=== PATIENT | male | born 1965 | race Caucasian/White ===

== ENCOUNTER → 2018-03-17 13:36 | Outpatient (CLI) | payer OTHER, SELFPAY ==
--- NOTE | 2018-03-17 | DI.CT.S_ITS ---
PROCEDURE: CT ABDOMEN PELVIS W CON INDICATIONS: LEFT LOWER QUADRANT PAIN TECHNIQUE: After the administration of oral and intravenous contrast, 5 mm thick sections acquired from the diaphragms to the symphysis. 5 mm thick coronal and sagittal reformats were performed. For radiation dose reduction, the following was used: automated exposure control, adjustment of mA and/or kV according to patient size. COMPARISON: [facility], CT, ABDOMEN/PELVIS WITH CONTRAST, 08/19/2017, 15:14. FINDINGS: Image quality: Excellent. ABDOMEN: Lung bases: Lung bases are clear. Heart size is normal. Solid organs: Simple right lobe liver cysts stable since the previous study. Ill-defined increased enhancement along the posterior margin of the right lobe of the liver most consistent with a transient hepatic attenuation defect. No evidence of solid mass. The pancreas, spleen, left adrenal gland and kidneys are normal. There are right adrenal gland calcifications with no evidence of discrete right adrenal gland mass. Peritoneum and bowel: There is inflammatory change, wall thickening, abnormal enhancement along the distal descending and proximal sigmoid colon consistent with acute diverticulitis. There is a 2.2 x 1.4 x 3.0 cm rim-enhancing fluid collection posterior to the abnormal descending colon (se 2 im 60). No bowel obstruction. Small bowel and appendix are normal. Wall thickening near the pylorus is likely physiologic. Nodes and vessels: No retroperitoneal or mesenteric adenopathy. Aorta and inferior vena cava are normal in caliber. Miscellaneous: No ventral hernias. PELVIS: Genitourinary: Bladder wall thickness is normal. Miscellaneous: No inguinal hernias or adenopathy. Bones: No suspicious bony lesions. No vertebral body compression fractures. IMPRESSION: Acute descending/sigmoid diverticulitis with small abscess posterior to the colon. It's location and small size preclude percutaneous drainage. 1. Recommend clinical followup to resolution with possible colonoscopy to exclude any underlying mass lesions. 2. Right adrenal gland calcifications likely due to previous trauma, hemorrhage, granulomatous disease or infarction. No CT evidence of mass. Dictated by: Humberto Alicea M.D. on 03/17/2018 at 15:35 Approved by: Humberto Alicea M.D. on 03/17/2018 at 15:46
== END ==
PROVIDERS: Family Provider Family Medicine; PCP Family Medicine; Visit Provider Surgery
DX: K57.20 Diverticulitis of large intestine with perforation and abscess without bleeding (principal)
CPT/HCPCS: 74177; Q9967

== ENCOUNTER → 2019-02-02 13:38 | Outpatient (CLI) | payer OTHER, SELFPAY ==
--- NOTE | 2019-02-02 14:27 | DI.CT.S_ITS ---
PROCEDURE: CT ABDOMEN PELVIS W CON INDICATIONS: Recurrent abd pain TECHNIQUE: After the administration of oral and intravenous contrast, 5 mm thick sections acquired from the diaphragms to the symphysis. 5 mm thick coronal and sagittal reformats were performed. For radiation dose reduction, the following was used: automated exposure control, adjustment of mA and/or kV according to patient size. COMPARISON: [facility], CT, CT ABDOMEN PELVIS W CON, 03/17/2018, 14:32. FINDINGS: Image quality: Excellent. ABDOMEN: Lung bases: Lung bases are clear. Heart size is normal. Solid organs: Liver is normal in size and enhancement. There is a 1 cm water density cyst involving the right lateral liver, as on series 2 image 16, which is stable compared to the prior examination. Gallbladder wall is not thickened. Biliary system is non-dilated. Pancreas enhances normally. Spleen is normal in size and enhancement. No adrenal nodules. Focal benign-appearing calcification can be seen involving the right adrenal gland. Kidneys are normal in size and enhancement, without hydronephrosis. Peritoneum and bowel: Mild focal wall thickening is seen involving the distal descending colon and proximal sigmoid colon. Mild surrounding inflammatory changes are seen. Diverticula formation can be seen throughout this region. Milder diverticula formation can be seen elsewhere within the colon. No dilated loops of small bowel are seen. No free air or significant free can be seen. No loculated fluid collections are seen. Nodes and vessels: No retroperitoneal or mesenteric adenopathy. Aorta and inferior vena cava are normal in caliber. Miscellaneous: A mild periumbilical hernia is seen, containing fat. PELVIS: Genitourinary: Bladder wall thickness is normal. Miscellaneous: No inguinal adenopathy. Mild fat-containing bilateral inguinal hernias are seen. Bones: No suspicious bony lesions. No vertebral body compression fractures. Mild dextroconvex scoliotic curvature is seen. IMPRESSION: These imaging findings are most compatible with mild diverticulitis. The degree of diverticulitis is improved compared to the prior CT dated 03/17/18. No findings of perforation or abscess are seen. When clinically appropriate (following adequate treatment of the patient's current clinical episode) a colonoscopy is recommended for further evaluation for a potential underlying mass (if not already recently done). Incidental note is made of: Simple appearing liver cyst Stable benign-appearing calcification involving the right adrenal gland Fat-containing periumbilical hernia Fat-containing bilateral inguinal hernias Dictated by: Pasquale Broderick M.D. on 02/02/2019 at 13:59 Approved by: Pasquale Broderick M.D. on 02/02/2019 at 14:03
== END ==
PROVIDERS: PCP Family Medicine; Visit Provider Surgery
DX: K57.32 Diverticulitis of large intestine without perforation or abscess without bleeding (principal); K76.89 Other specified diseases of liver; E27.49 Other adrenocortical insufficiency; R10.9 Unspecified abdominal pain; K42.9 Umbilical hernia without obstruction or gangrene; K40.20 Bilateral inguinal hernia, without obstruction or gangrene, not specified as recurrent
CPT/HCPCS: 74177; Q9967

== ENCOUNTER → 2021-02-26 09:03 | Outpatient (CLI) | payer OTHER, SELFPAY ==
[2021-02-26 10:13] LABS: Alanine Aminotransferase 32 IU/L (<50); Albumin 4.1 g/dL (3.5-5.0); Albumin Globulin Ratio 1.3 (1.0-2.8); Alkaline Phosphatase 62 U/L (38-126); Aspartate Aminotransferase 33 IU/L (17-59); BUN Creatinine Ratio 11.6 (6-22); Bilirubin Total 0.4 mg/dL (0.2-1.3); Blood Urea Nitrogen 11 mg/dL (9-20); Calcium 9.4 mg/dL (8.4-10.2); Carbon Dioxide 28 mmol/L (22-32); Chloride 105 mmol/L (98-107); Cholesterol 156 mg/dL (140-199); Estimated Glomerular Filt Rate > 60.0 mL/min (>60); Globulin 3.1 g/dL (1.7-4.1); Glucose 104 mg/dL (70-100); HDL Cholesterol 34 mg/dL (40-60); HEMOLYSIS < 15 (0-50); LDL Cholesterol Calculated 103 mg/dL (<100); Potassium 4.1 mmol/L (3.4-5.1); Sodium 140 mmol/L (137-145); Total Protein 7.2 g/dL (6.3-8.2); Triglycerides 97 mg/dL (35-150)
[2021-02-26 10:38] LABS: Prostate Specific Antigen Scrn 2.87 ng/mL (0.1-4.0)
== END ==
PROVIDERS: PCP Internal Medicine; Referring Provider Internal Medicine; Visit Provider Internal Medicine
DX: Z13.1 Encounter for screening for diabetes mellitus (principal); Z13.220 Encounter for screening for lipoid disorders; Z13.6 Encounter for screening for cardiovascular disorders; Z12.5 Encounter for screening for malignant neoplasm of prostate
CPT/HCPCS: 36415; 80053; 80061; G0103

== ENCOUNTER → 2024-11-09 09:08 | Outpatient (CLI) | payer OTHER, SELFPAY ==
[2024-11-09 09:52] LABS: Add Manual Diff / Slide Review NO; Basophils Absolute Auto 100 /uL (0-100); Basophils Percent Auto 1.1 % (0-2); Eosinophils Absolute Auto 300 /uL (0-450); Eosinophils Percent Auto 4.9 % (2-4); Hematocrit 47.2 % (41-53); Hemoglobin 16.3 g/dL (13.5-17.5); Lymphocytes Absolute Auto 1700 /uL (1100-4500); Lymphocytes Percent Auto 29.1 % (25-40); Mean Corpuscular HGB Conc 34.4 % (30-36); Mean Corpuscular Hemoglobin 31.4 PG (26-34); Mean Corpuscular Volume 91.3 fL (80-100); Monocytes Absolute Auto 500 /uL (0-900); Neutrophils Absolute Auto 3300 /uL (1500-7000); Neutrophils Percent Auto 55.9 % (50-75); Platelet Count 178 X10^3/uL (150-400); Red Blood Cell Count 5.17 X10^6/uL (4.5-5.9); Red Cell Distribution Width 13.9 % (11.6-14.8); White Blood Cell Count 5.9 X10^3/uL (4.5-11.0)
[2024-11-09 10:13] LABS: Alanine Aminotransferase 39 IU/L (<50); Albumin 4.3 g/dL (3.5-5.0); Albumin Globulin Ratio 1.7 (1.0-2.8); Alkaline Phosphatase 58 U/L (38-126); Aspartate Aminotransferase 37 IU/L (17-59); BUN Creatinine Ratio 10.2 (6-22); Bilirubin Total 0.7 mg/dL (0.2-1.3); Blood Urea Nitrogen 10 mg/dL (9-20); Calcium 9.3 mg/dL (8.4-10.2); Carbon Dioxide 28 mmol/L (22-32); Chloride 105 mmol/L (98-107); Cholesterol 161 mg/dL (140-199); Estimated Glomerular Filt Rate > 60 mL/min (>60); Globulin 2.6 g/dL (1.7-4.1); Glucose 95 mg/dL (80-110); HDL Cholesterol 34 mg/dL (40-60); HEMOLYSIS < 15 (0-50); LDL Cholesterol Calculated 100 mg/dL (<100); Potassium 4.2 mmol/L (3.4-5.1); Sodium 140 mmol/L (137-145); Total Protein 6.9 g/dL (6.3-8.2); Triglycerides 135 mg/dL (35-150)
[2024-11-09 10:41] LABS: Prostate Specific Antigen Scrn 3.73 ng/mL (0.1-4.0)
== END ==
PROVIDERS: PCP Internal Medicine; Referring Provider Internal Medicine; Visit Provider Internal Medicine
DX: Z13.1 Encounter for screening for diabetes mellitus (principal); Z12.5 Encounter for screening for malignant neoplasm of prostate; K57.30 Diverticulosis of large intestine without perforation or abscess without bleeding; D64.9 Anemia, unspecified; E78.5 Hyperlipidemia, unspecified
CPT/HCPCS: 36415; 80053; 80061; 85025; G0103